=== PATIENT | female | born 1955 | race Caucasian/White ===

== ENCOUNTER 2017-06-29 09:46 | Emergency (ER) | payer MEDICAID ==
[~2017-06-29] VITALS: Ht 152.4 cm; Wt 58.0 kg
[~2017-06-29 09:46] MED LIST: BACTDS PO; CEPH-443 PO; CLIN-73 PO; HYDR-906 PO; NAPR-260 PO
[2017-06-29 09:48] VITALS: Ht 152.4 cm; Wt 58.0 kg
[2017-06-29] MEDS ORDERED: ACETAMINOPHEN 325 MG TAB PO ONE (11:00)
--- NOTE | 2017-06-29 11:03 | ERD ---
ER Documentation Chief Complaint Date/Time DATE: 06/29/17 TIME: 11:00 Chief Complaint r knee pain/swelling x 2 days HPI Patient a 62-year-old female with no past medical history presents emergency department with concerns of right knee pain and swelling 2 days. Patient denies any falls or trauma. Patient denies taking any medication for symptoms. Patient reports pain with ambulating. Patient states the pain does come and go in nature however for last 2 days it has been significantly worse. Denies any fevers, chills, nausea, vomiting, chest pain, shortness breath or loss of consciousness. ROS All systems reviewed and are negative except as per history of present illness. Medications Home Meds Active Scripts Ibuprofen* (Motrin*) 400 Mg Tab, 400 MG PO Q6, #30 TAB Prov:SONDRA ALEXIS PA-C 06/29/17 Naproxen* (Naprosyn*) 500 Mg Tablet, 500 MG PO BID Y for PAIN AND/OR INFLAMMATION, #30 TAB Prov:DRAKE ELIZALDE PA-C 05/16/16 Hydrocodone/Acetaminophen (Marquand 5-325 Tablet) 1 Each Tablet, 1 TAB PO Q6H Y for PAIN, #7 TAB Prov:DRAKE ELIZALDE PA-C 05/16/16 Clindamycin Hcl* (Clindamycin Hcl*) 300 Mg Capsule, 300 MG PO TID for 10 Days, CAP Prov:DRAKE ELIZALDE PA-C 05/16/16 Naproxen* (Naprosyn*) 500 Mg Tablet, 500 MG PO BID Y for PAIN AND/OR INFLAMMATION, #30 TAB Prov:DRAKE ELIZALDE PA-C 10/31/15 Cephalexin* (Keflex*) 500 Mg Capsule, 500 MG PO QID for 7 Days, CAP Prov:DRAKE ELIZALDE PA-C 10/31/15 Sulfamethoxazole-Trimethoprim* (Bactrim* DS) 800-160 Mg Tab, 1 TAB PO BID for 7 Days, TAB Prov:DRAKE ELIZALDE PA-C 10/31/15 Allergies Allergies: Coded Allergies: No Known Drug Allergies (Verified Allergy, Unknown, 06/29/17) PMhx/Soc Medical and Surgical Hx: pt denies Medical Hx, pt denies Surgical Hx History of Surgery: No Anesthesia Reaction: No Hx Neurological Disorder: No Hx Respiratory Disorders: No Hx Cardiac Disorders: No Hx Psychiatric Problems: No Hx Miscellaneous Medical Probl: No Hx Alcohol Use: No Hx Substance Use: No Hx Tobacco Use: No Smoking Status: Never smoker FmHx Family History: No diabetes Physical Exam Vitals Vital Signs Date Time Temp Pulse Resp B/P Pulse Ox O2 Delivery O2 Flow Rate FiO2 06/29/17 09:48 97.9 60 18 163/75 97 Physical Exam GENERAL: Well-developed, well-nourished female. Appears in no acute distress. HEAD: Normocephalic, atraumatic. EYES: Pupils are equally reactive bilaterally. EOMs grossly intact. No conjunctival erythema. ENT: Moist mucous membranes. No uvula deviation. No kissing tonsils. NECK: Supple. No meningismus. Normal range of motion of the neck. LUNG: Clear to auscultation bilaterally. No rhonchi, wheezing, rales or coarse breath sounds. HEART: Regular rate and rhythm. No murmurs, rubs or gallops. EXTREMITIES: Equal pulses bilaterally. No peripheral clubbing, cyanosis or edema. No unilateral leg swelling. NEUROLOGIC: Alert and oriented. Moving all four extremities without any difficulty. Normal speech. Steady gait. SKIN: Normal color. Warm and dry. Varicose veins noted throughout the patient' s right lower extremity and left lower extremity. RIGHT LE: No deformity, erythema, ecchymosis. Varicose veins throughout the extremity. Skin intact. Range of motion of the knee and ankle. Palpation of the anterior knee, lateral ankle. Nontender of the tibia-fibula. Sensation intact to light touch. Neurovascularly intact. (Able to plantarflex, dorsiflex, ashlee foot, invert foot, raise big toe.) 2+ DP and DT pulses. Results 24 hrs Current Medications Medications (Trade) Dose Ordered Sig/Dung Route PRN Reason Start Time Stop Time Status Last Admin Dose Admin Acetaminophen (Tylenol Tab) 650 mg ONCE ONCE PO 06/29/17 11:00 06/29/17 11:01 DC 06/29/17 11:16 Procedures/MDM ED COURSE: The patient was stable throughout ED course. I kept the patient and/or family informed of laboratory and diagnostic imaging results throughout the ED course. DIAGNOSTIC IMAGING: Read by radiologist. Patient: DREW SCOTT : 1955 Age: 62 Sex: F MR #: [id number] DOS: 06/29/17 1057 Ordering MD: SONDRA ALEXIS PA-C Location: [facility] Room/Bed: PROCEDURE: XR Right Ankle. CLINICAL INDICATION: Right knee and ankle pain. TECHNIQUE: 3 views. Frontal, lateral, and oblique. COMPARISON: None. FINDINGS: There is no fracture or dislocation. The soft tissues are normal. Articular surfaces are intact. There is a posterior calcaneal spur. There is no lytic or blastic lesion. There is no radiopaque foreign body. IMPRESSION: 1. Posterior calcaneal spur. 2. Otherwise unremarkable images of the right ankle. RPTAT: QQ .Jack Yeung MD, Date Time Electronically viewed and signed by .Jack Yeung MD, MD on 06/29/2017 12:05 .R/ CC: SONDRA ALEXIS PA-C Patient: DREW SCOTT : 1955 Age: 62 Sex: F MR #: [id number] DOS: 06/29/17 1057 Ordering MD: SONDRA ALEXIS PA-C Location: [facility] Room/Bed: PROCEDURE: Right knee radiographs. CLINICAL INDICATION: Right knee pain. TECHNIQUE: Three views. Weight bearing. Frontal, lateral, and oblique. COMPARISON: No prior studies are available for comparison. FINDINGS: There is no fracture or dislocation. The soft tissues are normal. The articular surfaces are intact. There are degenerative changes with small osteophytes arising from the joint margins. There is no lytic or blastic lesion. There is no radiopaque foreign body. IMPRESSION: 1. Mild degenerative change. 2. Otherwise unremarkable images of the right knee. RPTAT: QQ .Jack Yeung MD, MD Date Time Electronically viewed and signed by .Jack Yeung MD, MD on 06/29/2017 15:57 .R/ CC: SONDRA ALEXIS PA-C PROCEDURES: None. MEDICATIONS GIVEN: Tylenol Patient tolerated medication well with no adverse reactions. Patient reported improvement in pain. MEDICAL DECISION MAKING: This is a 62-year-old female who presents with right knee pain and right ankle pain 2 days. Patient denies any falls or trauma.. Vital signs were reviewed. Patient was afebrile. Chuy does have varicose veins throughout her right lower extremity. Xrays of the ankle showed posterior calcaneal spur. Given that patient had to leave, I interpreted the knee series as negative for acute fracture and dislocation. Formal read showed Mild degenerative change. Otherwise unremarkable images of the right knee. Given these findings, the patient's presentation is most consistent with varicose veins, R knee pain and R calcaneal spur. I have a much lower clinical concern for femur fracture, patella fracture, ankle fracture, ankle dislocation tibial plateau fracture, septic joint, gout, popliteal cyst, osteomyelitis, DVT or compartment syndrome. At this time, unable to rule out any meniscus and knee ligament injuries. PRESCRIPTIONS: Tylenol DISCHARGE: At this time, patient is stable for discharge and outpatient management. Patient was encouraged to wear compression stockings. RICE therapy and ROM exercises were advised to avoid stiffness. I have instructed the patient to follow-up with his/her primary care physician in 1-2 days. I have discussed with the patient the possibility of needing to see an orthopedic tech for further workup and imaging if the pain persists. I have instructed the patient to promptly return to the ER for any new or worsening symptoms including increased pain, swelling, redness, warmth or fever. The patient and/or family expressed understanding of and agreement with this plan. All questions were answered. Home care instructions were provided. Disclaimer: Inadvertent spelling and grammatical errors are likely due to EHR/ dictation software use and do not reflect on the overall quality of patient care. Also, please note that the electronic time recorded on this note does not necessarily reflect the actual time of the patient encounter. Patient's blood pressure was elevated (>120/80) but appears stable without evidence of hypertensive emergency, hypertensive urgency or end-organ failure. I had discussion with the patient about the risks of hypertension. I have advised the patient to follow up with his/her primary care physician for outpatient monitoring and treatment for hypertension in 2-3 days. I have instructed the patient to return to the ER for any new or worsening symptoms including chest pain, shortness of breath, headache, blurred vision, confusion, nausea, vomiting or LOC. Departure Diagnosis: Primary Impression: Varicose veins of right lower extremity Additional Impressions: Knee pain Chronicity: acute Laterality: right Qualified Code: M25.561 - Acute pain of right knee Calcaneal spur of right foot Condition: Stable Patient Instructions: Knee Pain, Uncertain Cause Referrals: [facility] YOU HAVE RECEIVED A MEDICAL SCREENING EXAM AND THE RESULTS INDICATE THAT YOU DO NOT HAVE A CONDITION THAT REQUIRES URGENT TREATMENT IN THE EMERGENCY DEPARTMENT. FURTHER EVALUATION AND TREATMENT OF YOUR CONDITION CAN WAIT UNTIL YOU ARE SEEN IN YOUR DOCTORS OFFICE WITHIN THE NEXT 1-2 DAYS. IT IS YOUR RESPONSIBILITY TO MAKE AN APPOINTMENT FOR FOLOW-UP CARE. IF YOU HAVE A PRIMARY DOCTOR --you should call your primary doctor and schedule an appointment IF YOU DO NOT HAVE A PRIMARY DOCTOR YOU CAN CALL OUR PHYSICIAN REFERRAL HOTLINE AT IF YOU CAN NOT AFFORD TO SEE A PHYSICIAN YOU CAN CHOSE FROM THE FOLLOWING [facility] [address] [facility]. [facility] [address] [facility]. [facility] [address] [facility]. [facility] [address] [facility] [facility] [address] [facility]. [facility]. [address] [facility] [facility] YOU HAVE RECEIVED A MEDICAL SCREENING EXAM AND THE RESULTS INDICATE THAT YOU DO NOT HAVE A CONDITION THAT REQUIRES URGENT TREATMENT IN THE EMERGENCY DEPARTMENT. FURTHER EVALUATION AND TREATMENT OF YOUR CONDITION CAN WAIT UNTIL YOU ARE SEEN IN YOUR DOCTORS OFFICE WITHIN THE NEXT 1-2 DAYS. IT IS YOUR RESPONSIBILITY TO MAKE AN APPOINTMENT FOR FOLOW-UP CARE. IF YOU HAVE A PRIMARY DOCTOR --you should call your primary doctor and schedule and appointment IF YOU DO NOT HAVE A PRIMARY DOCTOR YOU CAN CALL OUR PHYSICIAN REFERRAL HOTLINE AT . IF YOU CAN NOT AFFORD TO SEE A PHYSICIAN YOU CAN CHOSE FROM THE FOLLOWING [facility] INSTITUTIONS: [facility] [address] [place] [address] [facility] [address] [place] [address] [facility] + [facility] [address] [place] [address] [facility] Hours: Mon-Fri 9:00 AM - 5:00 PM Additional Instructions: Call your primary care doctor TOMORROW for an appointment during the next 1-2 days.See the doctor sooner or return here if your condition worsens before your appointment time. Wear compression stockings. SONDRA ALEXIS PA-C Jun 29, 2017 11:03
--- NOTE | 2017-06-29 12:05 | RADRPT ---
PROCEDURE: XR Right Ankle. CLINICAL INDICATION: Right knee and ankle pain. TECHNIQUE: 3 views. Frontal, lateral, and oblique. COMPARISON: None. FINDINGS: There is no fracture or dislocation. The soft tissues are normal. Articular surfaces are intact. There is a posterior calcaneal spur. There is no lytic or blastic lesion. There is no radiopaque foreign body. IMPRESSION: 1. Posterior calcaneal spur. 2. Otherwise unremarkable images of the right ankle. RPTAT: QQ .Jack Yeung MD, MD Date Time Electronically viewed and signed by .Jack Yeung MD, MD on 06/29/2017 12:05 .R/
[2017-06-29] MEDS ORDERED: IBUP400T22 PO (14:47)
--- NOTE | 2017-06-29 15:57 | RADRPT ---
PROCEDURE: Right knee radiographs. CLINICAL INDICATION: Right knee pain. TECHNIQUE: Three views. Weight bearing. Frontal, lateral, and oblique. COMPARISON: No prior studies are available for comparison. FINDINGS: There is no fracture or dislocation. The soft tissues are normal. The articular surfaces are intact. There are degenerative changes with small osteophytes arising fro m the joint margins. There is no lytic or blastic lesion. There is no radiopaque foreign body. IMPRESSION: 1. Mild degenerative change. 2. Otherwise unremarkable images of the right knee. RPTAT: QQ .Jack Yeung MD, Date Time Electronically viewed and signed by .Jack Yeung MD, on 06/29/2017 15:57 .R/
== END 2017-06-29 14:55 | disposition home or self-care (01) ==
LOC: FTE 09:46
DX: I83.91 Asymptomatic varicose veins of right lower extremity (principal); M77.31 Calcaneal spur, right foot
CPT/HCPCS: 73562; 73610; Z7502; Z7610